=== PATIENT | female | born 1940 | race Caucasian/White ===

== ENCOUNTER 2016-12-27 18:30 | Emergency (ER) | payer MEDICARE, OTHER ==
[2016-12-27] MEDS ORDERED: Sodium Chloride 0.9% 1000 ML 1,000 ML IV STA (19:38)
[2016-12-27] MEDS ORDERED: Zofran 4 MG/2 ML VIAL IV ONE (19:38)
--- NOTE | 2016-12-27 19:38 | ERPHSYRPT ---
- History of Present Illness Time Seen by Provider: 12/27/16 19:29 Source: patient Exam Limitations: no limitations Patient Subjective Stated Complaint: WEAKNESS Triage Nursing Assessment: WAS OUT IN SUN ALL DAY YESTERDAY AND GOT OVERHEATED. STATES TODAY HAS BEEN ABLE TO KEEP ORAL FLUIDS DOWN, SLIGHT NAUSEA AND DIARRHEAX3 THIS AFTERNOON. DENIES PAIN. ORAL MEMBRANES MOIST. SKIN WARM AND DRY Physician History: The patient is a 76-year-old female with her daughter complaining of weakness today. Yesterday the patient was at a cookout in the sun in the afternoon and then went to see a parade in the early evening. She thinks he is just dehydrated. She also had 3 rounds of diarrhea today as well as nausea. Her past medical history is significant for anemia. Timing/Duration: today Severity: mild Modifying Factors: Improves With: nothing Associated Symptoms: nausea, weakness Allergies/Adverse Reactions: No Known Drug Allergies Allergy (Unverified 12/27/16 18:36) Home Medications: Hydrocodone Bit/Acetaminophen [Hydrocodon-Acetaminophen 5-325] 1 each PO DAILY 12/27/16 [History] Prednisone 5 mg [Deltasone 5 mg] 5 mg PO DAILY 12/27/16 [History] Pregabalin 25 mg [Lyrica 25 MG] 25 mg PO DAILY 12/27/16 [History] Hx Tetanus, Diphtheria Vaccination/Date Given: Yes Hx Influenza Vaccination/Date Given: Yes Hx Pneumococcal Vaccination/Date Given: No Immunizations Up to Date: Yes - Review of Systems Constitutional: Weakness Eyes: No Symptoms Ears, Nose, & Throat: No Symptoms Respiratory: No Cough, No Dyspnea Cardiac: No Chest Pain, No Edema, No Syncope Abdominal/Gastrointestinal: Nausea, Diarrhea Genitourinary Symptoms: No Dysuria Musculoskeletal: No Back Pain, No Neck Pain Skin: No Rash Neurological: No Dizziness, No Focal Weakness, No Sensory Changes Psychological: No Symptoms Endocrine: No Symptoms Hematologic/Lymphatic: No Symptoms Immunological/Allergic: No Symptoms All Other Systems: Reviewed and Negative - Past Medical History Pertinent Past Medical History: Yes Other Medical History: ANEMIA - Past Surgical History Past Surgical History: Yes Gastrointestinal: Appendectomy - Social History Smoking Status: Never smoker Exposure to second hand smoke: No Drug Use: none Patient Lives Alone: Yes - Nursing Vital Signs Nursing Vital Signs: Initial Vital Signs Temperature 97.9 F Temperature Source Oral Pulse Rate 90 Respiratory Rate 18 Blood Pressure [Right Arm] 140/69 Pain Intensity 0 - Physical Exam General Appearance: no apparent distress, alert Eye Exam: PERRL/EOMI, eyes nml inspection Ears, Nose, Throat Exam: normal ENT inspection, TMs normal, pharynx normal, moist mucous membranes Neck Exam: normal inspection, non-tender, supple, full range of motion Respiratory Exam: normal breath sounds, lungs clear, No respiratory distress Cardiovascular Exam: regular rate/rhythm, normal heart sounds, normal peripheral pulses Gastrointestinal/Abdomen Exam: soft, normal bowel sounds, No tenderness, No mass Pelvic Exam: not done Rectal Exam: not done Back Exam: normal inspection, normal range of motion, No CVA tenderness, No vertebral tenderness Extremity Exam: normal inspection, normal range of motion, pelvis stable Neurologic Exam: alert, oriented x 3, cooperative, normal mood/affect, nml cerebellar function, nml station & gait, sensation nml, No motor deficits SpO2 Interpretation: normal SpO2: 95 Oxygen Delivery: Room Air Ordered Tests: Active Orders 24 hr Category Date Time Status IV Insertion STAT Care 12/27/16 19:38 Active CBC W DIFF Stat Lab 12/27/16 19:50 Completed CMP Stat Lab 12/27/16 19:50 Completed Lactic Acid Stat Lab 12/27/16 19:49 Completed UA W/ MICROSCOPIC Stat Lab 12/27/16 21:20 Completed Medication Summary Discontinued Medications Generic Name Dose Route Start Last Admin Trade Name Freq PRN Reason Stop Dose Admin Sodium Chloride 1,000 mls @ 999 mls/hr 12/27/16 19:38 12/27/16 19:49 Sodium Chloride 0.9% 1000 Ml IV 12/27/16 20:38 999 mls/hr .Q1H1M STA Administration Sodium Chloride Confirm 12/27/16 19:42 Sodium Chloride 0.9% 1000 Ml Administered 12/27/16 19:43 Dose 1,000 mls @ ud .ROUTE .STK-MED ONE Ondansetron HCl 4 mg 12/27/16 19:38 12/27/16 19:53 Zofran 4 Mg/2 Ml Vial IV 12/27/16 19:39 4 mg STAT ONE Administration Ondansetron HCl Confirm 12/27/16 19:42 Zofran 4 Mg/2 Ml Vial Administered 12/27/16 19:43 Dose 4 mg .ROUTE .STK-MED ONE Lab/Rad Data: Laboratory Result Diagrams 12/27/16 19:50 12/27/16 19:50 Laboratory Results 12/27/16 12/27/16 12/27/16 Range/Units 21:20 19:50 19:50 WBC 9.3 (4.0-10.5) K/mm3 RBC 3.93 L (4.1-5.4) M/mm3 Hgb 8.6 L (12.0-16.0) gm/dl Hct 30.5 L (35-47) % MCV 77.6 L (78-100) fl MCH 21.8 L (26-32) pg MCHC 28.2 L (32-36) g/dl RDW 20.2 H (11.5-14.0) % Plt Count 583 H (150-450) K/mm3 MPV 9.6 H (6-9.5) fl Gran % 80.7 H (36.0-66.0) % Lymphocytes % 8.6 L (24.0-44.0) % Monocytes % 7.8 (0.0-12.0) % Eosinophils % 2.3 (0.00-5.0) % Basophils % 0.6 (0.0-0.4) % Basophils # 0.06 (0-0.4) Sodium 141 (136-145) mEq/L Potassium 3.9 (3.5-5.1) mEq/L Chloride 105 (98-107) mEq/L Carbon Dioxide 26.8 (21-32) mEq/L Anion Gap 13.4 (5-15) MEQ/L BUN 17 (9-20) mg/dL Creatinine 0.82 (0.55-1.30) mg/dl Estimated GFR > 60 ML/MIN Glucose 123 H (70-110) MG/DL Lactic Acid (0.4-2.0) Calcium 9.1 (8.5-10.1) mg/dL Total Bilirubin 0.40 (0.2-1.0) mg/dL AST 17 (15-37) U/L ALT 15 (12-78) U/L Alkaline Phosphatase 68 (46-116) U/L Serum Total Protein 7.1 (6.4-8.2) gm/dL Albumin 3.0 L (3.4-5.0) g/dL Ur Collection Type CCMS Urine Color YELLOW (YELLOW) Urine Appearance CLEAR (CLEAR) Urine pH 5.0 (5-6) Ur Specific [place] 1.015 (1.005-1.025) Urine Protein NEGATIVE (Negative) Urine Ketones SMALL (NEGATIVE) Urine Blood NEGATIVE (0-5) Giovanni/ul Urine Nitrite NEGATIVE (NEGATIVE) Urine Bilirubin NEGATIVE (NEGATIVE) Urine Urobilinogen NORMAL (0-1) mg/dL Ur Leukocyte Esterase 1+ (NEGATIVE) Urine Microscopic RBC 0-2 (0-2) /HPF Urine Microscopic WBC 0-2 (0-5) /HPF Ur Epithelial Cells FEW (FEW) /HPF Urine Bacteria FEW (NEGATIVE) /HPF Urine Mucus SLIGHT (NEGATIVE) /HPF Urine Glucose NEGATIVE (NEGATIVE) mg/dL Slides for Path Review YES Specimen Received 12-27-16 21412/27/16 Range/Units 19:49 WBC (4.0-10.5) K/mm3 RBC (4.1-5.4) M/mm3 Hgb (12.0-16.0) gm/dl Hct (35-47) % MCV (78-100) fl MCH (26-32) pg MCHC (32-36) g/dl RDW (11.5-14.0) % Plt Count (150-450) K/mm3 MPV (6-9.5) fl Gran % (36.0-66.0) % Lymphocytes % (24.0-44.0) % Monocytes % (0.0-12.0) % Eosinophils % (0.00-5.0) % Basophils % (0.0-0.4) % Basophils # (0-0.4) Sodium (136-145) mEq/L Potassium (3.5-5.1) mEq/L Chloride (98-107) mEq/L Carbon Dioxide (21-32) mEq/L Anion Gap (5-15) MEQ/L BUN (9-20) mg/dL Creatinine (0.55-1.30) mg/dl Estimated GFR ML/MIN Glucose (70-110) MG/DL Lactic Acid 0.9 (0.4-2.0) Calcium (8.5-10.1) mg/dL Total Bilirubin (0.2-1.0) mg/dL AST (15-37) U/L ALT (12-78) U/L Alkaline Phosphatase (46-116) U/L Serum Total Protein (6.4-8.2) gm/dL Albumin (3.4-5.0) g/dL Ur Collection Type Urine Color (YELLOW) Urine Appearance (CLEAR) Urine pH (5-6) Ur Specific [place] (1.005-1.025) Urine Protein (Negative) Urine Ketones (NEGATIVE) Urine Blood (0-5) Giovanni/ul Urine Nitrite (NEGATIVE) Urine Bilirubin (NEGATIVE) Urine Urobilinogen (0-1) mg/dL Ur Leukocyte Esterase (NEGATIVE) Urine Microscopic RBC (0-2) /HPF Urine Microscopic WBC (0-5) /HPF Ur Epithelial Cells (FEW) /HPF Urine Bacteria (NEGATIVE) /HPF Urine Mucus (NEGATIVE) /HPF Urine Glucose (NEGATIVE) mg/dL Slides for Path Review Specimen Received - Progress Progress: improved Progress Note: 12/27/16 21:50 After 1 L of normal saline and Zofran 4 mg IV, the patient is feeling much better. Counseled pt/family regarding: lab results, diagnosis - Departure Time of Disposition: 21:50 Departure Disposition: Home Clinical Impression: Dehydration, Anemia Condition: Stable Critical Care Time: No Additional Instructions: You were mildly dehydrated. You were given 1 L of fluids by IV. You also are mildly anemic with a hemoglobin of 8.6. Stay well hydrated. Follow-up as needed. Prescriptions: Ondansetron [Zofran Odt] 4 mg PO Q6HPRN PRN #10 tab.rapdis PRN Reason: Nausea/Vomiting
[2016-12-27] MEDS ORDERED: Zofran 4 MG/2 ML VIAL ONE (19:42)
[2016-12-27] MEDS ORDERED: Sodium Chloride 0.9% 1000 ML 1,000 ML ONE (19:42)
[2016-12-27 19:59] LABS: BASOPHIL % 0.6 % (0.0-0.4); Eosinophil % 2.3 % (0.00-5.0); Granulocytes % 80.7 % (36.0-66.0); Lymphocytes % 8.6 % (24.0-44.0); Mean Cell Volume 77.6 fl (78-100); Mean Corpuscular Hemoglobin 21.8 pg (26-32); Mean Platelet Volume 9.6 fl (6-9.5); Monocytes % 7.8 % (0.0-12.0); Platelet Count 583 K/mm3 (150-450); Red Blood Count 3.93 M/mm3 (4.1-5.4); Red Cell Distribution Width 20.2 % (11.5-14.0); White Blood Count 9.3 K/mm3 (4.0-10.5)
[2016-12-27 20:16] LABS: ALKALINE PHOSPHATASE 68 U/L (46-116); ANION GAP 13.4 MEQ/L (5-15); BLOOD UREA NITROGEN 17 mg/dL (9-20); CHLORIDE 105 mEq/L (98-107); Carbon Dioxide 26.8 mEq/L (21-32); Glucose 123 MG/DL (70-110); Potassium 3.9 mEq/L (3.5-5.1); SGOT/AST 17 U/L (15-37); SGPT/ALT 15 U/L (12-78); SODIUM 141 mEq/L (136-145); Total Protein 7.1 gm/dL (6.4-8.2)
[2016-12-27 21:44] LABS: Bacteria FEW /HPF (NEGATIVE); Bilirubin NEGATIVE (NEGATIVE); Blood NEGATIVE Ery/ul (0-5); COMPLETE URINE MICROSCOPIC? YES; Collection Type CCMS; Epithelial Cells FEW /HPF (FEW); Glucose NEGATIVE (NEGATIVE); Leukocyte Esterase 1+ (NEGATIVE); Mucus SLIGHT /HPF (NEGATIVE); WBC 0-2 /HPF (0-5)
[2016-12-27 21:45] LABS: ADD URINE CULTURE? NO (NO)
[2016-12-27 22:12] VITALS: BP 119/70; PULSE 79; O2SAT 100
== END 2016-12-27 22:12 | disposition home or self-care (01) ==
LOC: ED 18:30
DX: E86.0 Dehydration (principal); D64.9 Anemia, unspecified; R11.0 Nausea; R53.1 Weakness; R19.7 Diarrhea, unspecified
CPT/HCPCS: 36000; 36415; 80053; 81000; 83605; 85025; 96360; 96374; 99284; J2405